=== PATIENT | female | born 1980 | race Two or more races ===

== ENCOUNTER 2023-09-13 14:45 | Outpatient (CLI) | payer BC ==
[~2023-09-13 14:45] MED LIST: ASPIRIN81 M1; CLARITIN-D 121 EACH PO; COUMADIN10 MG; DOLOGESIC CAPLE1 TAB PO; NUVARING V1 VAG.RING; OSEL75CA PO; TUSSI PRES-B L120 M1 PO
== END 2023-09-13 14:49 | disposition home or self-care (01) ==
LOC: RAD 14:45
PROVIDERS: ATTEND Orthopaedic Surgery
DX: M47.817 Spondylosis without myelopathy or radiculopathy, lumbosacral region (principal); M51.36 Other intervertebral disc degeneration, lumbar region

== ENCOUNTER 2025-01-03 16:14 | Outpatient (CLI) | payer BC | END 2025-01-03 16:17 | disposition home or self-care (01) | LOC: RAD 16:14 | PROVIDERS: ATTEND Family Medicine | DX: R07.1 Chest pain on breathing (principal) ==